=== PATIENT | male | born 1995 | race Caucasian/White ===

== ENCOUNTER 2017-05-14 20:53 | Emergency (ER) | payer MEDICAID ==
[2017-05-14 21:12] VITALS: RESP 20; TEMP 98.5
[2017-05-14] MEDS ORDERED: ACETAMINOPHEN 325 MG PO ONE (21:51)
[2017-05-14] MEDS ORDERED: ACETAMINOPHEN 325 MG ONE (22:16)
[2017-05-14 22:49] LABS: BASOPHILS % (AUTO) 1 % (0-3); EOSINOPHILS % (AUTO) 1 % (0-9); HEMATOCRIT 43 % (39-53); MEAN CORPUSCULAR HGB CONC 32.2 gm/dl (32.0-36.0); MONOCYTES % (AUTO) 5.8 % (0-12); NEUTROPHILS % (AUTO) 68.1 % (37-80)
[2017-05-14 22:50] LABS: MEAN CORPUSCULAR VOLUME 80 fL (80-100)
[2017-05-14 23:10] LABS: ALBUMIN 3.7 gm/dl (3.4-5.0); CALCIUM 8.4 mg/dl (8.5-10.1); POTASSIUM 3.6 mMol/L (3.5-5.1)
[2017-05-15 00:09] VITALS: O2SAT 97
[2017-05-15 00:10] VITALS: BP 101/58; PULSE 62
== END 2017-05-14 23:29 | disposition home or self-care (01) | DRG 101 ==
LOC: ED 20:53
DX: G40.89 Other seizures (principal)
CPT/HCPCS: 36415; 70450; 80053; 85025; 99284

== ENCOUNTER 2018-01-15 00:12 | Emergency (ER) | payer MEDICAID ==
[2018-01-15] MEDS ORDERED: FENTANYL 100MCG/2ML SOL IV ONE (00:17)
[2018-01-15] MEDS ORDERED: SODIUM CHLORIDE 0.9% FLUSH 10 ML SOL IV PRN (00:18)
[2018-01-15] MEDS ORDERED: FENTANYL 100MCG/2ML SOL ONE (00:19)
[2018-01-15 01:00] VITALS: RESP 16; TEMP 97.6
[2018-01-15 01:12] VITALS: BP 135/83; PULSE 71; O2SAT 96
== END 2018-01-15 01:52 | disposition home or self-care (01) | DRG 563 ==
LOC: ED 00:12
DX: S83.004A Unspecified dislocation of right patella, initial encounter (principal); W00.2XXA Other fall from one level to another due to ice and snow, initial encounter
CPT/HCPCS: 73560; 96374; 99283; 99284; G0390; J3010; L1830

== ENCOUNTER 2018-01-17 12:32 | Outpatient (CLI) | payer MEDICAID ==
[2018-01-15 01:12] VITALS: O2SAT 96
== END 2018-01-17 12:33 | disposition home or self-care (01) | DRG 563 ==
LOC: CONVCARE 12:32
PROVIDERS: ATTEND Orthopaedic Surgery
DX: S83.014A Lateral dislocation of right patella, initial encounter (principal)
CPT/HCPCS: 73560

== ENCOUNTER 2018-02-21 13:00 | Outpatient (CLI) | payer MEDICAID ==
[2018-01-15 01:12] VITALS: O2SAT 96
== END 2018-02-21 13:01 | disposition home or self-care (01) | DRG 556 ==
LOC: CONVCARE 13:00
PROVIDERS: ATTEND Orthopaedic Surgery
DX: M25.561 Pain in right knee (principal)
CPT/HCPCS: 73562